=== PATIENT | male | born 1955 | race Two or more races ===

== ENCOUNTER 2022-12-04 22:29 | Inpatient (IN) | payer MEDICARE, MEDICAID ==
[~2022-12-04] VITALS: Ht 170.2 cm; Wt 76.2 kg
[2022-12-04] MEDS ORDERED: ASPirin 325 MG TAB PO ONE (23:00)
[2022-12-04] MEDS ORDERED: HEPARIN SODIUM (PORCINE) 5000 UNITS/ML 1ML VIAL IV ONE (23:00)
[2022-12-04] MEDS ORDERED: LIDOCAINE 2%HCL (LOCAL ANESTH.) INJ 20ML MDV ONE (23:10)
[2022-12-04] MEDS ORDERED: IODIXANOL 320MG/ML 100ML BTL IV ONE (23:10)
[2022-12-04] MEDS ORDERED: ATROPINE SULF 1 MG/10ml SYR ONE (23:11)
[2022-12-04] MEDS ORDERED: fentaNYL CITRATE 100 MCG/2 ML VL ONE (23:12)
[2022-12-04] MEDS ORDERED: SODIUM CHL 0.9% 50 ML ONE (23:12)
[2022-12-04] MEDS ORDERED: MIDAZOLAM HCL 2MG/2ML 2ml VIAL (1mg/ml) ONE (23:12)
[2022-12-04] MEDS ORDERED: ANGIOMAX 250 MG VIAL IV ONE (23:12)
[2022-12-04] MEDS ORDERED: EPINEPHrine HCL 1 MG/10 ML SYRG ONE (23:12)
[2022-12-04 23:14] LABS: Basophils # (auto) 0.1 10 ^3/uL (0-0.2); Basophils % (auto) 0.6 % (0.0-2.0); Eosinophils % (auto) 9.1 % (0.0-7.0); Hematocrit 38.4 % (41.0-53.0); Hemoglobin 12.9 g/dL (13.5-17.5); Mean Corpuscular Hemoglobin 29.6 pg (28.0-32.0); Mean Corpuscular Hgb Conc. 33.6 g/dL (32.0-36.0); Monocytes % (auto) 8.6 % (0.0-12.0); Neutrophils % (auto) 45.7 % (37.0-80.0); Nucleated Red Blood Cells % 0.1 %; Red Blood Cells 4.37 10^6/uL (4.5-5.90); Red Cell Distribution Width 15.1 % (11.8-14.3)
[2022-12-04 23:24] LABS: INR 1.18 (0.9-1.15); Partial Thromboplastin Time 25.6 sec (24.6-33.4)
[2022-12-04 23:31] LABS: Albumin 3.4 g/dL (3.4-5.0); Calcium 8.9 mg/dL (8.5-10.1); Magnesium 1.8 mg/dL (1.6-2.6); Potassium 3.1 mmol/L (3.5-5.1)
[2022-12-04 23:37] LABS: BUN/Creatinine Ratio 19.8 (10.0-20.0); Bilirubin, Total 0.8 mg/dL (0.2-1.0); Total Protein 6.8 g/dL (6.4-8.2)
[2022-12-05] VITALS (10 sets, daily range): BP systolic 116–165; BP diastolic 66–96
[2022-12-05] MEDS ORDERED: IODIXANOL 320MG/ML 100ML BTL IV ONE (00:08)
[2022-12-05] MEDS ORDERED: NITROGLYCERIN 0.4 MG SL TAB SL PRN (00:15)
[2022-12-05] MEDS ORDERED: MORPHINE SULFATE INJ 2 MG/ml SYRG IV PRN (00:15)
[2022-12-05] MEDS ORDERED: CLOPIDOGREL 300 MG TAB ONE (00:21)
[2022-12-05] MEDS ORDERED: ONDANSETRON HCL 4 MG/2 ML VIAL IV PRN (01:00)
[2022-12-05] MEDS ORDERED: HYDROcodone-ACET 5/325MG TAB PO PRN (01:15)
[2022-12-05] MEDS: SODIUM CHLOR 0.9% PF (SALINE LOCK) 10ML VIAL/SYR IV SCH ×3 (06:23→21:46)
[2022-12-05] MEDS: LISINOPRIL 5 MG TAB PO SCH ×2 (09:50→21:40)
[2022-12-05] MEDS: METOPROLOL TARTRATE 25 MG TAB PO SCH ×2 (09:51→21:40)
[2022-12-05] MEDS: PANTOPRAZOLE 40 MG/10 ML VIAL INJ IV SCH ×2 (09:52→21:39)
[2022-12-05] MEDS: ENOXAPARIN SOD 40 MG/0.4 ML SYRINGE SC SCH (09:53)
[2022-12-05] MEDS ORDERED: ASPirin 81 mg TAB PO SCH (10:00)
[2022-12-05] MEDS ORDERED: CLOPIDOGREL BISULFATE 75 MG TAB PO SCH (10:00)
[2022-12-05] MEDS ORDERED: hydrALAZINE HCL 20 MG/ML VL IV ONE (17:30)
[2022-12-05] MEDS: ATORVASTATIN 20 MG TAB PO SCH (21:46)
[2022-12-06] MEDS ORDERED: dilTIAZem 25 MG/5 ML VIAL IV ONE (00:45)
[2022-12-06 00:50] LABS: Urine WBC None Seen /hpf (0 - 3)
[2022-12-06 01:10] LABS: Urine Bacteria NONE SEEN /hpf (None Seen); Urine Blood Negative /uL (Negative); Urine Specific Gravity 1.007 (1.001-1.035)
[2022-12-06] MEDS ORDERED: METOPROLOL TARTRATE 50 MG TAB PO ONE (01:45)
[2022-12-06] MEDS ORDERED: LABETALOL HCL 5 MG/ML 4ML SYRINGE IV ONE (01:45)
[2022-12-06] MEDS: LABETALOL HCL 5 MG/ML 4ML SYRINGE IV PRN ×3 (06:14→17:53)
[2022-12-06] MEDS: SODIUM CHLOR 0.9% PF (SALINE LOCK) 10ML VIAL/SYR IV SCH ×4 (06:19→22:18)
[2022-12-06 06:26] LABS: Albumin 3.3 g/dL (3.4-5.0); Calcium 9.2 mg/dL (8.5-10.1); Potassium 3.3 mmol/L (3.5-5.1)
[2022-12-06 06:30] LABS: BUN/Creatinine Ratio 13.5 (10.0-20.0); Basophils # (auto) 0.1 10 ^3/uL (0-0.2); Basophils % (auto) 0.6 % (0.0-2.0); Eosinophils # (auto) 0.7 10 ^3/uL (0-0.8); Eosinophils % (auto) 5.4 % (0.0-7.0); Hematocrit 42.7 % (41.0-53.0); Hemoglobin 14.7 g/dL (13.5-17.5); Lymphocytes # (auto) 2.3 10 ^3/uL (0.4-5.4); Lymphocytes % (auto) 19.1 % (10.0-50.0); Mean Corpuscular Hemoglobin 30.7 pg (28.0-32.0); Mean Corpuscular Hgb Conc. 34.4 g/dL (32.0-36.0); Mean Corpuscular Volume 89.3 fL (80.0-100.0); Monocytes % (auto) 8.3 % (0.0-12.0); Neutrophils % (auto) 66.6 % (37.0-80.0); Red Blood Cells 4.78 10^6/uL (4.5-5.90); Red Cell Distribution Width 15.1 % (11.8-14.3); Total Protein 7.1 g/dL (6.4-8.2)
[2022-12-06 09:00] VITALS: BP 167/99
[2022-12-06] MEDS: ATORVASTATIN 20 MG TAB PO SCH (09:05)
[2022-12-06] MEDS: PANTOPRAZOLE 40 MG/10 ML VIAL INJ IV SCH (09:05)
[2022-12-06] MEDS: METOPROLOL TARTRATE 25 MG TAB PO SCH ×2 (09:06→21:50)
[2022-12-06] MEDS: ENOXAPARIN SOD 40 MG/0.4 ML SYRINGE SC SCH (09:06)
[2022-12-06] MEDS: LISINOPRIL 5 MG TAB PO SCH ×2 (09:09→21:51)
[2022-12-06 13:00] VITALS: BP 151/97
[2022-12-06] MEDS ORDERED: ASPirin 81 mg TAB PO ONE (16:45)
[2022-12-06] MEDS ORDERED: CLOPIDOGREL BISULFATE 75 MG TAB PO ONE (16:45)
[2022-12-06 17:00] VITALS: BP 156/100
[2022-12-06] MEDS ORDERED: POTASSIUM CHL 20 Meq TABLET PO ONE (17:45)
[2022-12-06] MEDS ORDERED: ERGOCALCIFEROL 50,000 UNIT(1.25MG) CAP PO SCH (17:45)
[2022-12-06] MEDS ORDERED: DEXTROSE (50%) 50ML SYRG IV PRN (17:45)
[2022-12-06 20:00] VITALS: BP 163/104
[2022-12-06 21:59] VITALS: BP 163/104
[2022-12-06] MEDS: ACCU-CHEK COMFORT CURVE STRIP VI SCH (22:18)
[2022-12-06] MEDS: InsuLIN REG 1unit/0.01ml Soln (100units/ml) SC SCH (22:19)
[2022-12-07] VITALS (8 sets, daily range): BP systolic 146–166; BP diastolic 84–98
[2022-12-07] MEDS: LABETALOL HCL 5 MG/ML 4ML SYRINGE IV PRN ×4 (01:02→06:08)
[2022-12-07] MEDS: SODIUM CHLOR 0.9% PF (SALINE LOCK) 10ML VIAL/SYR IV SCH ×3 (06:16→22:00)
[2022-12-07] MEDS: ACCU-CHEK COMFORT CURVE STRIP VI SCH ×4 (06:16→22:00)
[2022-12-07] MEDS: InsuLIN REG 1unit/0.01ml Soln (100units/ml) SC SCH ×4 (06:22→22:00)
[2022-12-07 06:31] LABS: Potassium 3.7 mmol/L (3.5-5.1)
[2022-12-07 06:40] LABS: Albumin 3.1 g/dL (3.4-5.0); BUN/Creatinine Ratio 16.9 (10.0-20.0); Bilirubin, Total 1.2 mg/dL (0.2-1.0); Calcium 8.7 mg/dL (8.5-10.1); Magnesium 1.8 mg/dL (1.6-2.6); Total Protein 6.8 g/dL (6.4-8.2)
[2022-12-07] MEDS ORDERED: PANTOPRAZOLE 40 MG TAB PO SCH (10:00)
[2022-12-07] MEDS: ENOXAPARIN SOD 40 MG/0.4 ML SYRINGE SC SCH (10:21)
[2022-12-07] MEDS: ASPirin 81 mg TAB PO SCH (10:22)
[2022-12-07] MEDS: METOPROLOL TARTRATE 25 MG TAB PO SCH ×2 (10:22→22:22)
[2022-12-07] MEDS: CLOPIDOGREL BISULFATE 75 MG TAB PO SCH (10:22)
[2022-12-07] MEDS: LISINOPRIL 5 MG TAB PO SCH (10:23)
[2022-12-07] MEDS ORDERED: cloNIDine HCL 0.1 MG TAB PO PRN (14:45)
[2022-12-07] MEDS ORDERED: PANTOPRAZOLE 40 MG TAB PO ONE (14:45)
[2022-12-07] MEDS ORDERED: LISINOPRIL 10 MG TAB PO ONE (15:45)
[2022-12-07] MEDS ORDERED: cloNIDine 0.3 mg/24hr 7DAY PATCH TD SCH (20:45)
[2022-12-07] MEDS ORDERED: amLODIPine BESYLATE 5 MG TAB PO SCH (22:00)
[2022-12-07] MEDS ORDERED: LISINOPRIL 10 MG TAB PO SCH (22:00)
[2022-12-07] MEDS: ATORVASTATIN 20 MG TAB PO SCH (22:21)
[2022-12-07] MEDS: LISINOPRIL 20 MG TAB PO SCH (22:23)
[2022-12-07] MEDS: NIFEdipine ER 30 MG TAB PO SCH (22:23)
[2022-12-08 05:00] VITALS: BP 106/65
[2022-12-08] MEDS: SODIUM CHLOR 0.9% PF (SALINE LOCK) 10ML VIAL/SYR IV SCH ×2 (06:00→14:26)
[2022-12-08] MEDS: ACCU-CHEK COMFORT CURVE STRIP VI SCH ×2 (06:14→11:48)
[2022-12-08] MEDS: InsuLIN REG 1unit/0.01ml Soln (100units/ml) SC SCH ×2 (06:14→11:49)
[2022-12-08 08:10] VITALS: BP 107/66
[2022-12-08] MEDS ORDERED: PANTOPRAZOLE 40 MG TAB PO SCH (10:00)
[2022-12-08] MEDS: NIFEdipine ER 30 MG TAB PO SCH (10:00)
[2022-12-08] MEDS: METOPROLOL TARTRATE 25 MG TAB PO SCH (10:00)
[2022-12-08] MEDS: CLOPIDOGREL BISULFATE 75 MG TAB PO SCH (10:26)
[2022-12-08] MEDS: ASPirin 81 mg TAB PO SCH (10:31)
[2022-12-08] MEDS: LISINOPRIL 20 MG TAB PO SCH (10:32)
[2022-12-08] MEDS: ENOXAPARIN SOD 40 MG/0.4 ML SYRINGE SC SCH (10:32)
[2022-12-08] MEDS ORDERED: ERGO1CAP23 PO (11:58)
[2022-12-08] MEDS ORDERED: CLOP75TA70 PO (11:58)
[2022-12-08] MEDS ORDERED: LISI20TA28 PO (11:58)
[2022-12-08] MEDS ORDERED: ASPI-325 PO (11:58)
[2022-12-08] MEDS ORDERED: NIFE1TAB36 PO (11:58)
[2022-12-08] MEDS ORDERED: EMPA1TAB PO (11:59)
[2022-12-08 14:31] VITALS: BP 107/66
== END 2022-12-08 17:03 | disposition home or self-care (01) | DRG 250 ==
LOC: EDBD 22:29 → ER 22:29 → TELE 12-05 00:06 → TELE-WESTW 12-05 01:49
PROVIDERS: ADMIT Specialist; ATTEND Internal Medicine
PROC: 03CY3ZZ Extirpation of Matter from Upper Artery, Percutaneous Approach (ICD-10-PCS; principal; 2022-12-05)
PROC: 02703ZZ Dilation of Coronary Artery, One Artery, Percutaneous Approach (ICD-10-PCS; 2022-12-05)
PROC: 047A3DZ Dilation of Left Renal Artery with Intraluminal Device, Percutaneous Approach (ICD-10-PCS; 2022-12-05)
PROC: B211YZZ Fluoroscopy of Multiple Coronary Arteries using Other Contrast (ICD-10-PCS; 2022-12-05)
PROC: B215YZZ Fluoroscopy of Left Heart using Other Contrast (ICD-10-PCS; 2022-12-05)
PROC: 4A023N7 Measurement of Cardiac Sampling and Pressure, Left Heart, Percutaneous Approach (ICD-10-PCS; 2022-12-05)
PROC: B210YZZ Fluoroscopy of Single Coronary Artery using Other Contrast (ICD-10-PCS; 2022-12-05)
PROC: 4A133B1 Monitoring of Arterial Pressure, Peripheral, Percutaneous Approach (ICD-10-PCS; 2022-12-05)
PROC: B44GZZ3 Ultrasonography of Left Lower Extremity Arteries, Intravascular (ICD-10-PCS; 2022-12-05)
DX: I21.09 ST elevation (STEMI) myocardial infarction involving other coronary artery of anterior wall (principal); I50.31 Acute diastolic (congestive) heart failure; E44.0 Moderate protein-calorie malnutrition; I69.351 Hemiplegia and hemiparesis following cerebral infarction affecting right dominant side; E11.9 Type 2 diabetes mellitus without complications; I11.0 Hypertensive heart disease with heart failure; E55.9 Vitamin D deficiency, unspecified; I25.10 Atherosclerotic heart disease of native coronary artery without angina pectoris; Z68.26 Body mass index [BMI] 26.0-26.9, adult; Z83.3 Family history of diabetes mellitus; Z82.49 Family history of ischemic heart disease and other diseases of the circulatory system; I25.2 Old myocardial infarction
CPT/HCPCS: 36415; 37236; 70450; 71045; 80053; 80061; 81001; 82043; 82306; 82962; 83036; 83735; 83880; 84443; 84484; 85025; 85610; 85730; 86850; 86900; 86901; 92941; 93005; 93306; 93458; 96374; 97110; 97163; 97530; 99152; 99153; C9113; G0378; J1815; J2250; J3490; Q9967

== ENCOUNTER 2023-03-28 23:02 | Inpatient (IN) | payer MEDICARE, MEDICAID ==
[~2023-03-28] VITALS: Ht 170.2 cm; Wt 66.4 kg
[~2023-03-28 23:02] MED LIST: ASPI-325 PO; CLOP75TA70 PO; EMPA1TAB PO; ERGO1CAP23 PO; LISI20TA56 PO; NIFE1TAB36 PO
[2023-03-29 00:55] LABS: Basophils # (auto) 0.1 10 ^3/uL (0-0.2); Basophils % (auto) 1.1 % (0.0-2.0); Eosinophils # (auto) 0.5 10 ^3/uL (0-0.8); Hemoglobin 14.6 g/dL (13.5-17.5); Lymphocytes % (auto) 42.2 % (10.0-50.0); Mean Corpuscular Hemoglobin 31.2 pg (28.0-32.0); Mean Corpuscular Hgb Conc. 33.8 g/dL (32.0-36.0); Mean Corpuscular Volume 92.2 fL (80.0-100.0); Monocytes # (auto) 0.7 10 ^3/uL (0-1.3); Monocytes % (auto) 9.4 % (0.0-12.0); Neutrophils # (auto) 2.9 10 ^3/uL (1.6-8.6); Neutrophils % (auto) 40.3 % (37.0-80.0); Nucleated Red Blood Cells % 0.1 %; Red Blood Cells 4.67 10^6/uL (4.5-5.90); Red Cell Distribution Width 14.8 % (11.8-14.3); White Blood Cell 7.1 10^3/uL (4.4-10.8)
[2023-03-29 01:58] LABS: Erythrocyte Sedimentation Rate 7 mm/hr (0-20)
[2023-03-29 02:15] LABS: Alanine Aminotransferase 36 U/L (7-40); Albumin 4.1 g/dL (3.2-4.8); Alkaline Phosphatase 91 U/L (46-116); Anion Gap 5.3 (5-15); Aspartate Aminotransferase 24 U/L (13-40); BUN/Creatinine Ratio 23.3 (10.0-20.0); Bilirubin, Total 0.6 mg/dL (0.2-1.0); Blood Urea Nitrogen 20 mg/dL (9-23); Calcium 9.6 mg/dL (8.7-10.4); Carbon Dioxide 26.7 mmol/L (20-30); Chloride 106 mmol/L (98-107); Glucose 105 mg/dL (74-106); Potassium 3.6 mmol/L (3.5-5.1); Sodium 138 mmol/L (136-145)
[2023-03-29] MEDS ORDERED: ONDANSETRON HCL 4 MG/2 ML VIAL IV PRN ×2 (03:45→04:00)
[2023-03-29] MEDS ORDERED: ACETAMINOPHEN 325 MG TAB PO PRN ×2 (03:45→04:00)
[2023-03-29] MEDS ORDERED: NITROGLYCERIN 0.4 MG SL TAB SL PRN (04:00)
[2023-03-29] MEDS ORDERED: MORPHINE SULFATE INJ 2 MG/ml SYRG IV PRN (04:00)
[2023-03-29 04:15] VITALS: PULSE 49; RESP 13; O2SAT 95
[2023-03-29 08:00] VITALS: PULSE 50; RESP 13; O2SAT 96
[2023-03-29] MEDS ORDERED: ENOXAPARIN SOD 40 MG/0.4 ML SYRINGE SC SCH (10:00)
[2023-03-29] MEDS: PANTOPRAZOLE 40 MG TAB PO SCH (10:42)
[2023-03-29] MEDS: ASPirin 81 mg TAB PO SCH (10:42)
[2023-03-29] MEDS: ENOXAPARIN SOD 40 MG/0.4 ML SYRINGE SC SCH (10:42)
[2023-03-29] MEDS: LISINOPRIL 20 MG TAB PO SCH ×2 (10:43→22:55)
[2023-03-29] MEDS: NIFEdipine ER 30 MG TAB PO SCH (10:43)
[2023-03-29] MEDS: CLOPIDOGREL BISULFATE 75 MG TAB PO SCH (10:44)
[2023-03-29] MEDS: SACUBITRIL-VALSARTAN 24mg/26mg TAB PO SCH ×2 (10:44→22:54)
[2023-03-29 19:30] VITALS: PULSE 67; RESP 14; O2SAT 95
[2023-03-29 21:15] LABS: COVID19 ANTIGEN SOFIA FIA NEGATIVE (NEGATIVE)
[2023-03-29] MEDS: ATORVASTATIN 20 MG TAB PO SCH (22:56)
[2023-03-30] VITALS (11 sets, daily range): BP systolic 104–157; BP diastolic 65–107; PULSE 66–87; RESP 14–20; TEMP 36.9; O2SAT 92–98
[2023-03-30 06:17] LABS: Chloride 106 mmol/L (98-107); Potassium 3.4 mmol/L (3.5-5.1); Sodium 139 mmol/L (136-145)
[2023-03-30 06:18] LABS: Anion Gap 8.1 (5-15); Carbon Dioxide 24.9 mmol/L (20-30)
[2023-03-30 06:19] LABS: Calcium 9.3 mg/dL (8.5-10.1)
[2023-03-30 06:23] LABS: Glucose 113 mg/dL (74-106)
[2023-03-30 06:24] LABS: BUN/Creatinine Ratio 24.2 (10.0-20.0); Blood Urea Nitrogen 16 mg/dL (9-23)
[2023-03-30 06:53] LABS: Basophils # (auto) 0.1 10 ^3/uL (0-0.2); Basophils % (auto) 0.6 % (0.0-2.0); Eosinophils # (auto) 0.2 10 ^3/uL (0-0.8); Eosinophils % (auto) 2.4 % (0.0-7.0); Hematocrit 46.8 % (41.0-53.0); Hemoglobin 15.7 g/dL (13.5-17.5); Lymphocytes # (auto) 2.3 10 ^3/uL (0.4-5.4); Lymphocytes % (auto) 27.2 % (10.0-50.0); Mean Corpuscular Hgb Conc. 33.5 g/dL (32.0-36.0); Mean Corpuscular Volume 92.5 fL (80.0-100.0); Monocytes # (auto) 0.8 10 ^3/uL (0-1.3); Monocytes % (auto) 9.8 % (0.0-12.0); Neutrophils # (auto) 5.1 10 ^3/uL (1.6-8.6); Nucleated Red Blood Cells % 0.1 %; Red Blood Cells 5.07 10^6/uL (4.5-5.90); White Blood Cell 8.6 10^3/uL (4.4-10.8)
[2023-03-30 07:16] LABS: Urine Bacteria NONE SEEN /hpf (None Seen); Urine Blood 3+ /uL (Negative); Urine Clarity Clear (Clear); Urine Color PINK (Yellow); Urine Protein, UAD 1+ (Negative); Urine Specific Gravity 1.028 (1.001-1.035); Urine Urobilinogen Normal (Negative); Urine WBC 507 /hpf (0 - 3); Urine WBC Clumps PRESENT /hpf (None Seen); Urine pH 5.5 (5.0-8.0)
[2023-03-30] MEDS: ASPirin 81 mg TAB PO SCH (08:39)
[2023-03-30] MEDS: SACUBITRIL-VALSARTAN 24mg/26mg TAB PO SCH ×2 (08:39→22:38)
[2023-03-30] MEDS: LISINOPRIL 20 MG TAB PO SCH (08:40)
[2023-03-30] MEDS: PANTOPRAZOLE 40 MG TAB PO SCH (08:40)
[2023-03-30] MEDS: NIFEdipine ER 30 MG TAB PO SCH (08:40)
[2023-03-30] MEDS: CLOPIDOGREL BISULFATE 75 MG TAB PO SCH (08:40)
[2023-03-30] MEDS: ENOXAPARIN SOD 40 MG/0.4 ML SYRINGE SC SCH (08:41)
[2023-03-30] MEDS: ATORVASTATIN 20 MG TAB PO SCH (22:39)
[2023-03-31 05:00] VITALS: BP 100/64; PULSE 54; RESP 16; TEMP 97.5; O2SAT 96
[2023-03-31 07:30] VITALS: BP 157/107; PULSE 57; TEMP 36.4
[2023-03-31 08:00] VITALS: PULSE 55; RESP 16; O2SAT 97
[2023-03-31 08:38] VITALS: BP 105/66; PULSE 55; RESP 16; TEMP 97.7; O2SAT 97
[2023-03-31] MEDS: SACUBITRIL-VALSARTAN 24mg/26mg TAB PO SCH (08:49)
[2023-03-31] MEDS: ASPirin 81 mg TAB PO SCH (08:49)
[2023-03-31] MEDS: PANTOPRAZOLE 40 MG TAB PO SCH (08:49)
[2023-03-31] MEDS: CLOPIDOGREL BISULFATE 75 MG TAB PO SCH (08:49)
[2023-03-31] MEDS: ENOXAPARIN SOD 40 MG/0.4 ML SYRINGE SC SCH (08:50)
[2023-03-31] MEDS: NIFEdipine ER 30 MG TAB PO SCH (08:50)
[2023-03-31] MEDS ORDERED: LEVO500T91 PO ×2 (11:46→12:49)
[2023-03-31 12:33] VITALS: BP 100/59; PULSE 59; RESP 18; TEMP 97.6; O2SAT 98
[2023-03-31 12:52] VITALS: BP 105/66; TEMP 36.4
== END 2023-03-31 14:00 | disposition home or self-care (01) | DRG 948 ==
LOC: ER 23:02 → TELE 03-29 03:49 → TELE-WESTW 03-29 23:32
PROVIDERS: ADMIT Nurse Practitioner; ATTEND Internal Medicine
DX: R77.8 Other specified abnormalities of plasma proteins (principal); I69.351 Hemiplegia and hemiparesis following cerebral infarction affecting right dominant side; N39.0 Urinary tract infection, site not specified; I11.0 Hypertensive heart disease with heart failure; I25.5 Ischemic cardiomyopathy; Z20.822 Contact with and (suspected) exposure to COVID-19; Z82.49 Family history of ischemic heart disease and other diseases of the circulatory system; I25.2 Old myocardial infarction; Z98.61 Coronary angioplasty status; Z83.3 Family history of diabetes mellitus; I50.9 Heart failure, unspecified
CPT/HCPCS: 36415; 70450; 71045; 80048; 80053; 81001; 83605; 83880; 84484; 85025; 85652; 86141; 87426; 93005; 93971; 96372; 99291; G0378

== ENCOUNTER 2023-04-10 23:04 | Inpatient (IN) | payer MEDICARE, MEDICAID ==
[~2023-04-10] VITALS: Ht 162.6 cm; Wt 66.1 kg
[~2023-04-10 23:04] MED LIST changes: +LEVO500T91 PO
[2023-04-11] VITALS (7 sets, daily range): BP systolic 123–133; BP diastolic 73–77; PULSE 47–65; RESP 12–20; TEMP 97.6–98.4; O2SAT 93–100
[2023-04-11 00:08] LABS: Basophils # (auto) 0.1 10 ^3/uL (0-0.2); Basophils % (auto) 0.9 % (0.0-2.0); Eosinophils # (auto) 0.4 10 ^3/uL (0-0.8); Eosinophils % (auto) 4.4 % (0.0-7.0); Hematocrit 44.9 % (41.0-53.0); Hemoglobin 15.1 g/dL (13.5-17.5); Lymphocytes # (auto) 2.1 10 ^3/uL (0.4-5.4); Lymphocytes % (auto) 22.9 % (10.0-50.0); Mean Corpuscular Hemoglobin 30.7 pg (28.0-32.0); Mean Corpuscular Hgb Conc. 33.6 g/dL (32.0-36.0); Mean Corpuscular Volume 91.5 fL (80.0-100.0); Monocytes # (auto) 0.5 10 ^3/uL (0-1.3); Monocytes % (auto) 5.5 % (0.0-12.0); Neutrophils # (auto) 6.1 10 ^3/uL (1.6-8.6); Neutrophils % (auto) 66.3 % (37.0-80.0); Nucleated Red Blood Cells % 0.1 %; Red Blood Cells 4.91 10^6/uL (4.5-5.90); Red Cell Distribution Width 14.7 % (11.8-14.3); White Blood Cell 9.2 10^3/uL (4.4-10.8)
[2023-04-11 00:15] LABS: Acetaminophen < 2.0 UG/ML (10.0-20.0); Alanine Aminotransferase 37 U/L (7-40); Albumin 4.8 g/dL (3.2-4.8); Alkaline Phosphatase 89 U/L (46-116); Anion Gap 7 (5-15); Aspartate Aminotransferase 27 U/L (13-40); Bilirubin, Total 0.7 mg/dL (0.2-1.0); Blood Alcohol < 3.0 mg/dL (<10); Blood Urea Nitrogen 18 mg/dL (9-23); Calcium 9.6 mg/dL (8.7-10.4); Carbon Dioxide 27 mmol/L (20-30); Chloride 105 mmol/L (98-107); Glucose 95 mg/dL (74-106); Magnesium 2.2 mg/dL (1.6-2.6); Potassium 3.5 mmol/L (3.5-5.1); Sodium 139 mmol/L (136-145); Total Protein 7.4 g/dL (5.7-8.2)
[2023-04-11 00:18] LABS: Salicylate < 3.0 mg/dL (2.8-20.0)
[2023-04-11 00:25] LABS: INR 1.18 (0.9-1.15); Partial Thromboplastin Time 29.1 SEC (24.5-34.5); Prothrombin Time 12.3 sec (9.3-11.8)
[2023-04-11] MEDS ORDERED: ASPirin 325 MG TAB PO ONE (00:30)
[2023-04-11 03:10] LABS: Urine Bacteria FEW /hpf (None Seen); Urine Blood Negative /uL (Negative); Urine Clarity Clear (Clear); Urine Protein, UAD Negative (Negative); Urine Specific Gravity 1.011 (1.001-1.035); Urine Urobilinogen Normal (Negative); Urine WBC <1 /hpf (0 - 3); Urine pH 6.5 (5.0-8.0)
[2023-04-11 03:11] LABS: Urine Color Straw (Yellow)
[2023-04-11 04:02] LABS: Amphetamine Screen, Urine Neg (NEGATIVE); Barbiturate Scree,Urine Neg (NEGATIVE); Benzodiazephine Screen, Urine Neg (NEGATIVE); Cannabinoid Screen, Urine Neg (NEGATIVE); Cocaine Screen, Urine Neg (NEGATIVE); Opiate Scree,Urine Neg (NEGATIVE); Phencyclidine Screen, Urine Neg (NEGATIVE)
[2023-04-11] MEDS ORDERED: ONDANSETRON HCL 4 MG/2 ML VIAL IV PRN (05:15)
[2023-04-11] MEDS ORDERED: MORPHINE SULFATE INJ 2 MG/ml SYRG IV PRN (05:15)
[2023-04-11] MEDS ORDERED: NITROGLYCERIN 0.4 MG SL TAB SL PRN (05:15)
[2023-04-11] MEDS ORDERED: ENOXAPARIN SOD 100 MG/1 ML SYRINGE SC ONE (05:15)
[2023-04-11] MEDS ORDERED: ACETAMINOPHEN 325 MG TAB PO PRN (05:15)
[2023-04-11] MEDS ORDERED: PANTOPRAZOLE 40 MG TAB PO SCH (10:00)
[2023-04-11] MEDS: SACUBITRIL-VALSARTAN 24mg/26mg TAB PO SCH ×2 (10:23→21:51)
[2023-04-11] MEDS: ASPirin 81 mg TAB PO SCH (10:23)
[2023-04-11] MEDS: CLOPIDOGREL BISULFATE 75 MG TAB PO SCH (10:23)
[2023-04-11] MEDS: hydrALAZINE HCL 25 MG TAB PO SCH ×2 (10:24→21:52)
[2023-04-11] MEDS ORDERED: HYDR25TA87 PO (15:04)
[2023-04-11] MEDS ORDERED: ATOR-47 PO (15:04)
[2023-04-11] MEDS ORDERED: SACU1TAB PO (15:04)
[2023-04-11] MEDS ORDERED: CARV3.1240 PO (15:04)
[2023-04-11] MEDS ORDERED: FOLI-119 PO (15:04)
[2023-04-11] MEDS ORDERED: DEXTROSE (50%) 50ML SYRG IV PRN (16:45)
[2023-04-11] MEDS: InsuLIN REG 1unit/0.01ml Soln (100units/ml) SC SCH (17:00)
[2023-04-11] MEDS: ACCU-CHEK COMFORT CURVE STRIP VI SCH ×2 (17:10→21:53)
[2023-04-11] MEDS: ATORVASTATIN 20 MG TAB PO SCH (21:52)
[2023-04-11] MEDS ORDERED: InsuLIN REG 1unit/0.01ml Soln (100units/ml) SC SCH (22:00)
[2023-04-12] VITALS (7 sets, daily range): BP systolic 120–130; BP diastolic 70–79; PULSE 50–73; RESP 16–20; TEMP 97.2–98.4; O2SAT 95–100
[2023-04-12 06:12] LABS: Chloride 106 mmol/L (98-107); Potassium 3.4 mmol/L (3.5-5.1); Sodium 141 mmol/L (136-145)
[2023-04-12 06:13] LABS: Anion Gap 4 (5-15); Calcium 9.2 mg/dL (8.7-10.4); Carbon Dioxide 31 mmol/L (20-30)
[2023-04-12 06:18] LABS: BUN/Creatinine Ratio 21.4 (10.0-20.0); Blood Urea Nitrogen 18 mg/dL (9-23); Glucose 86 mg/dL (74-106)
[2023-04-12] MEDS: InsuLIN REG 1unit/0.01ml Soln (100units/ml) SC SCH (06:46)
[2023-04-12] MEDS: ACCU-CHEK COMFORT CURVE STRIP VI SCH (06:47)
[2023-04-12] MEDS ORDERED: POTASSIUM CHL 20 Meq TABLET PO ONE (09:30)
[2023-04-12] MEDS: CLOPIDOGREL BISULFATE 75 MG TAB PO SCH (10:13)
[2023-04-12] MEDS: ASPirin 81 mg TAB PO SCH (10:13)
[2023-04-12] MEDS: hydrALAZINE HCL 25 MG TAB PO SCH ×2 (10:14→22:00)
[2023-04-12] MEDS: SACUBITRIL-VALSARTAN 24mg/26mg TAB PO SCH ×2 (10:14→22:00)
[2023-04-12] MEDS: ENOXAPARIN SOD 40 MG/0.4 ML SYRINGE SC SCH (10:14)
[2023-04-12] MEDS: ATORVASTATIN 20 MG TAB PO SCH (22:00)
[2023-04-12] MEDS: MUPIROCIN 2% OINT 15gm or 22gm FOR MRSA NARES EACHNOSTRI SCH (22:01)
[2023-04-13] VITALS (7 sets, daily range): BP systolic 104–157; BP diastolic 63–99; PULSE 67–73; RESP 14–18; TEMP 97.4–98.7; O2SAT 95–98
[2023-04-13] MEDS: MUPIROCIN 2% OINT 15gm or 22gm FOR MRSA NARES EACHNOSTRI SCH ×2 (10:33→23:01)
[2023-04-13] MEDS: hydrALAZINE HCL 25 MG TAB PO SCH ×2 (10:34→23:03)
[2023-04-13] MEDS: SACUBITRIL-VALSARTAN 24mg/26mg TAB PO SCH ×2 (10:34→23:04)
[2023-04-13] MEDS: ASPirin 81 mg TAB PO SCH (10:34)
[2023-04-13] MEDS: ENOXAPARIN SOD 40 MG/0.4 ML SYRINGE SC SCH (10:34)
[2023-04-13] MEDS: CLOPIDOGREL BISULFATE 75 MG TAB PO SCH (10:34)
[2023-04-13] MEDS ORDERED: hydrALAZINE HCL 25 MG TAB PO ONE (12:30)
[2023-04-13 13:44] LABS: Urine Bacteria NONE SEEN /hpf (None Seen); Urine Blood 3+ /uL (Negative); Urine Clarity HAZY (Clear); Urine Color Red (Yellow); Urine Protein, UAD 2+ (Negative); Urine Specific Gravity 1.013 (1.001-1.035); Urine Urobilinogen Normal (Negative); Urine WBC 391 /hpf (0 - 3)
[2023-04-13 20:08] LABS: Basophils # (auto) 0.1 10 ^3/uL (0-0.2); Basophils % (auto) 0.7 % (0.0-2.0); Eosinophils # (auto) 0.3 10 ^3/uL (0-0.8); Eosinophils % (auto) 4.1 % (0.0-7.0); Hematocrit 41.2 % (41.0-53.0); Hemoglobin 14.2 g/dL (13.5-17.5); Lymphocytes # (auto) 2.1 10 ^3/uL (0.4-5.4); Lymphocytes % (auto) 25.8 % (10.0-50.0); Mean Corpuscular Hemoglobin 31.5 pg (28.0-32.0); Mean Corpuscular Hgb Conc. 34.6 g/dL (32.0-36.0); Mean Corpuscular Volume 91.2 fL (80.0-100.0); Monocytes # (auto) 0.6 10 ^3/uL (0-1.3); Monocytes % (auto) 7.4 % (0.0-12.0); Neutrophils # (auto) 5.1 10 ^3/uL (1.6-8.6); Nucleated Red Blood Cells % 0.1 %; Red Blood Cells 4.52 10^6/uL (4.5-5.90); Red Cell Distribution Width 14.8 % (11.8-14.3); White Blood Cell 8.3 10^3/uL (4.4-10.8)
[2023-04-13 21:11] LABS: INR 1.18 (0.9-1.15); Prothrombin Time 12.3 sec (9.3-11.8)
[2023-04-13] MEDS: ATORVASTATIN 20 MG TAB PO SCH (23:03)
[2023-04-14 05:00] VITALS: BP 104/66; PULSE 60; RESP 16; TEMP 98.5; O2SAT 96
[2023-04-14] MEDS: hydrALAZINE HCL 25 MG TAB PO SCH ×2 (06:26→13:39)
[2023-04-14 08:00] VITALS: PULSE 90
[2023-04-14 09:00] VITALS: BP 99/66; PULSE 88; RESP 14; TEMP 98.5; O2SAT 98
[2023-04-14] MEDS: MUPIROCIN 2% OINT 15gm or 22gm FOR MRSA NARES EACHNOSTRI SCH (10:08)
[2023-04-14] MEDS: ASPirin 81 mg TAB PO SCH (10:08)
[2023-04-14] MEDS: ENOXAPARIN SOD 40 MG/0.4 ML SYRINGE SC SCH (10:08)
[2023-04-14] MEDS: CLOPIDOGREL BISULFATE 75 MG TAB PO SCH (10:08)
[2023-04-14] MEDS: SACUBITRIL-VALSARTAN 24mg/26mg TAB PO SCH (10:08)
[2023-04-14 11:48] VITALS: BP 116/79; TEMP 36.9
== END 2023-04-14 15:03 | disposition home or self-care (01) | DRG 281 ==
LOC: ER 23:04 → EDBD 23:04 → TELE 04-11 05:19 → TELE-WESTW 04-11 15:04
PROVIDERS: ADMIT Nurse Practitioner; ATTEND Family Medicine
DX: I21.4 Non-ST elevation (NSTEMI) myocardial infarction (principal); I69.351 Hemiplegia and hemiparesis following cerebral infarction affecting right dominant side; R00.1 Bradycardia, unspecified; E78.00 Pure hypercholesterolemia, unspecified; I25.10 Atherosclerotic heart disease of native coronary artery without angina pectoris; R53.1 Weakness; R31.9 Hematuria, unspecified; E11.9 Type 2 diabetes mellitus without complications; I11.0 Hypertensive heart disease with heart failure; I25.5 Ischemic cardiomyopathy; I50.9 Heart failure, unspecified; Z79.899 Other long term (current) drug therapy; Z82.49 Family history of ischemic heart disease and other diseases of the circulatory system; Z83.3 Family history of diabetes mellitus; Z95.5 Presence of coronary angioplasty implant and graft; Z79.01 Long term (current) use of anticoagulants
CPT/HCPCS: 36415; 71045; 74176; 80048; 80053; 80307; 80320; 80329; 81001; 82962; 83036; 83605; 83735; 83880; 84484; 85025; 85610; 85730; 87081; 93005; 96372; 97110; 97116; 97163; 97530; G0378; J1815

== ENCOUNTER → 2023-05-23 | Outpatient (CLI) | payer MEDICARE, MEDICAID ==
[~2023-05-23] MED LIST changes: +ATOR-47 PO; +CARV3.1240 PO; +FOLI-119 PO; +HYDR25TA87 PO; +SACU1TAB PO
[2023-05-23 11:09] LABS: Basophils # (auto) 0.1 10 ^3/uL (0-0.2); Basophils % (auto) 1.2 % (0.0-2.0); Eosinophils # (auto) 0.5 10 ^3/uL (0-0.8); Eosinophils % (auto) 8.9 % (0.0-7.0); Hemoglobin 14.4 g/dL (13.5-17.5); Lymphocytes # (auto) 1.8 10 ^3/uL (0.4-5.4); Lymphocytes % (auto) 32.2 % (10.0-50.0); Mean Corpuscular Hemoglobin 31.2 pg (28.0-32.0); Mean Corpuscular Hgb Conc. 33.4 g/dL (32.0-36.0); Mean Corpuscular Volume 93.3 fL (80.0-100.0); Monocytes # (auto) 0.4 10 ^3/uL (0-1.3); Monocytes % (auto) 6.6 % (0.0-12.0); Neutrophils # (auto) 2.9 10 ^3/uL (1.6-8.6); Neutrophils % (auto) 51.1 % (37.0-80.0); Nucleated Red Blood Cells % 0.1 %; Red Blood Cells 4.61 10^6/uL (4.5-5.90); Red Cell Distribution Width 15.2 % (11.8-14.3); White Blood Cell 5.7 10^3/uL (4.4-10.8)
[2023-05-23 11:48] LABS: Alanine Aminotransferase 34 U/L (7-40); Albumin 3.9 g/dL (3.2-4.8); Alkaline Phosphatase 84 U/L (46-116); Anion Gap 5 (5-15); Aspartate Aminotransferase 24 U/L (13-40); BUN/Creatinine Ratio 20.3 (10.0-20.0); Bilirubin, Total 0.8 mg/dL (0.2-1.0); Blood Urea Nitrogen 13 mg/dL (9-23); Calcium 9.5 mg/dL (8.5-10.1); Carbon Dioxide 30 mmol/L (20-30); Chloride 107 mmol/L (98-107); Glucose 132 mg/dL (74-106); Potassium 3.5 mmol/L (3.5-5.1); Sodium 142 mmol/L (136-145); Total Protein 6.9 g/dL (5.7-8.2)
== END | disposition home or self-care (01) ==
LOC: LAB 10:53
PROVIDERS: ATTEND Internal Medicine
DX: I10 Essential (primary) hypertension (principal)
CPT/HCPCS: 36415; 80053; 85025

== ENCOUNTER → 2024-02-08 | Outpatient (CLI) | payer MEDICARE, MEDICAID ==
[2024-02-08 09:12] LABS: Basophils # (auto) 0.1 10 ^3/uL (0-0.2); Basophils % (auto) 1.1 % (0.0-2.0); Eosinophils # (auto) 0.4 10 ^3/uL (0-0.8); Eosinophils % (auto) 7.6 % (0.0-7.0); Hematocrit 44.3 % (41.0-53.0); Lymphocytes # (auto) 2.2 10 ^3/uL (0.4-5.4); Lymphocytes % (auto) 38.8 % (10.0-50.0); Mean Corpuscular Hemoglobin 31.5 pg (28.0-32.0); Mean Corpuscular Volume 92.8 fL (80.0-100.0); Monocytes # (auto) 0.4 10 ^3/uL (0-1.3); Monocytes % (auto) 7.4 % (0.0-12.0); Neutrophils # (auto) 2.6 10 ^3/uL (1.6-8.6); Neutrophils % (auto) 45.1 % (37.0-80.0); Nucleated Red Blood Cells % 0.1 %; Red Blood Cells 4.77 10^6/uL (4.5-5.90); Red Cell Distribution Width 14.6 % (11.8-14.3); White Blood Cell 5.8 10^3/uL (4.4-10.8)
[2024-02-08 09:30] LABS: Alanine Aminotransferase 24 U/L (7-40); Alkaline Phosphatase 79 U/L (46-116); Anion Gap 5 (5-15); BUN/Creatinine Ratio 24.4 (10.0-20.0); Blood Urea Nitrogen 21 mg/dL (9-23); Calcium 9.9 mg/dL (8.7-10.4); Carbon Dioxide 30 mmol/L (20-30); Chloride 109 mmol/L (98-107); Glucose 83 mg/dL (74-106); Potassium 4.2 mmol/L (3.5-5.1); Sodium 144 mmol/L (136-145); Triglycerides 63 mg/dL (< 150)
[2024-02-08 09:31] LABS: Albumin 4.2 g/dL (3.2-4.8); LDL Cholesterol 40 mg/dL (< 100)
[2024-02-08 09:32] LABS: Aspartate Aminotransferase 14 U/L (13-40); Bilirubin, Total 0.9 mg/dL (0.2-1.0); Cholesterol 98 mg/dL (< 200); HDL Cholesterol 43 mg/dL (40-59); Total Protein 6.9 g/dL (5.7-8.2)
== END | disposition home or self-care (01) ==
LOC: LAB 08:31
PROVIDERS: ATTEND Internal Medicine
DX: E11.69 Type 2 diabetes mellitus with other specified complication (principal); I50.32 Chronic diastolic (congestive) heart failure; Z79.899 Other long term (current) drug therapy
CPT/HCPCS: 36415; 80053; 80061; 82306; 83036; 84443; 85025

== ENCOUNTER → 2024-02-12 | Outpatient (CLI) | payer MEDICARE, MEDICAID ==
[2024-02-12 14:50] LABS: Urine Bacteria None Seen /hpf (None Seen); Urine WBC None Seen /hpf (0 - 3)
[2024-02-12 15:05] LABS: Urine Blood 3+ /uL (Negative); Urine Clarity Clear (Clear); Urine Color Light-Yellow (Yellow); Urine Protein, UAD Negative (Negative); Urine Specific Gravity 1.028 (1.001-1.035); Urine Urobilinogen Normal (Negative); Urine pH 5.5 (5.0-9.0)
== END | disposition home or self-care (01) ==
LOC: LAB 14:17
PROVIDERS: ATTEND Internal Medicine
DX: E11.69 Type 2 diabetes mellitus with other specified complication (principal); I50.32 Chronic diastolic (congestive) heart failure
CPT/HCPCS: 81001; 82043; 82274

== ENCOUNTER 2024-02-19 17:19 | Inpatient (IN) | payer MEDICARE, MEDICAID ==
[~2024-02-19] VITALS: Ht 167.6 cm; Wt 60.7 kg
[2024-02-19 18:27] VITALS: PULSE 60; RESP 18; O2SAT 97
[2024-02-19 18:44] LABS: Basophils # (auto) 0.1 10 ^3/uL (0-0.2); Basophils % (auto) 1.2 % (0.0-2.0); Eosinophils # (auto) 0.4 10 ^3/uL (0-0.8); Eosinophils % (auto) 6.9 % (0.0-7.0); Hematocrit 41.9 % (41.0-53.0); Hemoglobin 14.1 g/dL (13.5-17.5); Lymphocytes # (auto) 1.6 10 ^3/uL (0.4-5.4); Lymphocytes % (auto) 30.9 % (10.0-50.0); Mean Corpuscular Hemoglobin 30.9 pg (28.0-32.0); Mean Corpuscular Hgb Conc. 33.6 g/dL (32.0-36.0); Mean Corpuscular Volume 92.2 fL (80.0-100.0); Monocytes # (auto) 0.4 10 ^3/uL (0-1.3); Monocytes % (auto) 6.9 % (0.0-12.0); Neutrophils # (auto) 2.9 10 ^3/uL (1.6-8.6); Neutrophils % (auto) 54.1 % (37.0-80.0); Nucleated Red Blood Cells % 0.1 %; Red Blood Cells 4.54 10^6/uL (4.5-5.90); Red Cell Distribution Width 15.4 % (11.8-14.3); White Blood Cell 5.3 10^3/uL (4.4-10.8)
[2024-02-19 18:59] LABS: INR 1.18 (0.9-1.15); Partial Thromboplastin Time 25.5 SEC (24.5-34.5); Prothrombin Time 12.4 sec (9.3-11.8)
[2024-02-19] MEDS: levETIRAcetam 1000 mg/100ml 100 ML IV ONE (19:05)
[2024-02-19 19:10] LABS: Alanine Aminotransferase 16 U/L (7-40); Alkaline Phosphatase 76 U/L (46-116); Anion Gap 7 (5-15); Aspartate Aminotransferase 13 U/L (13-40); BUN/Creatinine Ratio 27.4 (10.0-20.0); Bilirubin, Total 0.7 mg/dL (0.2-1.0); Blood Urea Nitrogen 23 mg/dL (9-23); Calcium 9.5 mg/dL (8.7-10.4); Carbon Dioxide 28 mmol/L (20-30); Chloride 106 mmol/L (98-107); Glucose 100 mg/dL (74-106); Potassium 4.1 mmol/L (3.5-5.1); Sodium 141 mmol/L (136-145); Total Protein 6.4 g/dL (5.7-8.2)
[2024-02-19 19:35] VITALS: PULSE 60
[2024-02-19] MEDS ORDERED: DOCUSATE SOD 100 MG CAP PO PRN (20:45)
[2024-02-19] MEDS ORDERED: hydrALAZINE HCL 20 MG/ML VL IV PRN (20:45)
[2024-02-19] MEDS ORDERED: ONDANSETRON HCL 4 MG/2 ML VIAL IV PRN (20:45)
[2024-02-19] MEDS ORDERED: HYDROcodone-ACET 5/325MG TAB PO PRN (20:45)
[2024-02-19] MEDS ORDERED: ACETAMINOPHEN 325 MG TAB PO PRN (20:45)
[2024-02-19] MEDS ORDERED: MORPHINE SULFATE INJ 2 MG/ml SYRG IV PRN (21:15)
[2024-02-19] MEDS ORDERED: NITROGLYCERIN 0.4 MG SL TAB SL PRN (21:15)
[2024-02-19] MEDS: ATORVASTATIN 20 MG TAB PO SCH (21:59)
[2024-02-19] MEDS: levETIRAcetam 500 mg/100ml 100 ML IV SCH (22:00)
[2024-02-19] MEDS: SODIUM CHLOR 0.9% PF (SALINE LOCK) 10ML VIAL/SYR IV SCH (22:09)
[2024-02-20] VITALS (9 sets, daily range): BP systolic 101–123; BP diastolic 62–81; PULSE 58–61; RESP 16–18; TEMP 97.3–98.7; O2SAT 96–98
[2024-02-20 07:15] LABS: Basophils # (auto) 0 10 ^3/uL (0-0.2); Basophils % (auto) 0.8 % (0.0-2.0); Eosinophils # (auto) 0.3 10 ^3/uL (0-0.8); Eosinophils % (auto) 5.9 % (0.0-7.0); Hematocrit 40.5 % (41.0-53.0); Hemoglobin 13.5 g/dL (13.5-17.5); Lymphocytes # (auto) 2.6 10 ^3/uL (0.4-5.4); Lymphocytes % (auto) 46.8 % (10.0-50.0); Mean Corpuscular Hemoglobin 31.1 pg (28.0-32.0); Mean Corpuscular Hgb Conc. 33.4 g/dL (32.0-36.0); Mean Corpuscular Volume 93.2 fL (80.0-100.0); Monocytes # (auto) 0.4 10 ^3/uL (0-1.3); Monocytes % (auto) 7.8 % (0.0-12.0); Neutrophils # (auto) 2.2 10 ^3/uL (1.6-8.6); Neutrophils % (auto) 38.7 % (37.0-80.0); Nucleated Red Blood Cells % 0.2 %; Red Blood Cells 4.35 10^6/uL (4.5-5.90); Red Cell Distribution Width 15.3 % (11.8-14.3); White Blood Cell 5.6 10^3/uL (4.4-10.8)
[2024-02-20 07:33] LABS: Alanine Aminotransferase 13 U/L (7-40); Alkaline Phosphatase 66 U/L (46-116); Anion Gap 6 (5-15); Aspartate Aminotransferase 10 U/L (13-40); BUN/Creatinine Ratio 17.1 (10.0-20.0); Blood Urea Nitrogen 13 mg/dL (9-23); Calcium 9.4 mg/dL (8.7-10.4); Carbon Dioxide 28 mmol/L (20-30); Chloride 107 mmol/L (98-107); Glucose 69 mg/dL (74-106); Potassium 3.6 mmol/L (3.5-5.1); Sodium 141 mmol/L (136-145)
[2024-02-20 07:34] LABS: Albumin 3.7 g/dL (3.2-4.8); Bilirubin, Total 1.1 mg/dL (0.2-1.0); Total Protein 6.2 g/dL (5.7-8.2)
[2024-02-20] MEDS: ASPirin 81 mg TAB PO SCH (08:54)
[2024-02-20] MEDS: CLOPIDOGREL BISULFATE 75 MG TAB PO SCH (08:54)
[2024-02-20] MEDS: ERGOCALCIFEROL 50,000 UNIT(1.25MG) CAP PO SCH (14:02)
[2024-02-20] MEDS: SACUBITRIL-VALSARTAN 24mg/26mg TAB PO SCH (21:00)
[2024-02-20] MEDS: CARVEDILOL 3.125 MG TAB PO SCH (21:02)
[2024-02-20] MEDS ORDERED: LISINOPRIL 20 MG TAB PO SCH (22:00)
[2024-02-21 02:16] LABS: Urine Bacteria MANY /hpf (None Seen); Urine Blood Negative /uL (Negative); Urine Budding Yeast MODERATE /hpf (None Seen); Urine Clarity Turbid (Clear); Urine Color Colorless (Yellow); Urine Protein, UAD Negative (Negative); Urine Specific Gravity 1.019 (1.001-1.035); Urine Urobilinogen Normal (Negative); Urine WBC 5 /hpf (0 - 3)
[2024-02-21 05:00] VITALS: BP 135/87; PULSE 60; RESP 16; TEMP 98.8; O2SAT 98
[2024-02-21] MEDS: NIFEdipine ER 30 MG TAB PO SCH (06:17)
[2024-02-21] MEDS: EMPAGLIFLOZIN 10 MG TAB PO SCH (06:18)
[2024-02-21 06:23] LABS: Amphetamine Screen, Urine Neg (NEGATIVE); Barbiturate Scree,Urine Neg (NEGATIVE); Benzodiazephine Screen, Urine Neg (NEGATIVE); Cannabinoid Screen, Urine Neg (NEGATIVE); Cocaine Screen, Urine Neg (NEGATIVE); Opiate Scree,Urine Neg (NEGATIVE); Phencyclidine Screen, Urine Neg (NEGATIVE)
[2024-02-21 08:00] VITALS: PULSE 60
[2024-02-21 08:30] LABS: Chloride 108 mmol/L (98-107); Potassium 3.9 mmol/L (3.5-5.1); Sodium 141 mmol/L (136-145)
[2024-02-21 08:31] LABS: Anion Gap 3 (5-15); Calcium 9.7 mg/dL (8.7-10.4); Carbon Dioxide 30 mmol/L (20-30)
[2024-02-21 08:36] LABS: BUN/Creatinine Ratio 17.9 (10.0-20.0); Blood Urea Nitrogen 15 mg/dL (9-23); Glucose 83 mg/dL (74-106)
[2024-02-21 09:00] VITALS: BP 120/79; PULSE 63; RESP 18; TEMP 98.3; O2SAT 96
[2024-02-21] MEDS: ASPirin-EC 81 mg tab PO SCH (11:18)
[2024-02-21] MEDS: CLOPIDOGREL BISULFATE 75 MG TAB PO SCH (11:18)
[2024-02-21 13:00] VITALS: BP 98/50; PULSE 63; RESP 16; TEMP 98.2; O2SAT 98
[2024-02-21 15:18] LABS: Folate (Folic Acid) 26.91 ng/mL (>5.38)
[2024-02-21 15:51] VITALS: BP 98/50; PULSE 63; RESP 16; TEMP 98.2; O2SAT 98
== END 2024-02-21 17:40 | disposition home health service (06) | DRG 56 ==
LOC: EDUNIT# 17:19 → EDBD 17:19 → ER 17:19 → TELE 21:13 → TELE-WESTW 02-20 01:35
PROVIDERS: ADMIT Internal Medicine Geriatric Medicine; ATTEND Internal Medicine Geriatric Medicine
DX: I69.398 Other sequelae of cerebral infarction (principal); I21.A1 Myocardial infarction type 2; R56.9 Unspecified convulsions; E78.5 Hyperlipidemia, unspecified; R40.4 Transient alteration of awareness; E55.9 Vitamin D deficiency, unspecified; I25.10 Atherosclerotic heart disease of native coronary artery without angina pectoris; I11.9 Hypertensive heart disease without heart failure; Z82.49 Family history of ischemic heart disease and other diseases of the circulatory system; Z83.3 Family history of diabetes mellitus
CPT/HCPCS: 36415; 70450; 71045; 80048; 80053; 80307; 81001; 82306; 82533; 82607; 82746; 83735; 83880; 84443; 84484; 85025; 85610; 85730; 93005; 93306; 96365; 97110; 97116; 97163; 97530; G0378

== ENCOUNTER → 2024-06-25 | Outpatient (CLI) | payer MEDICARE, MEDICAID ==
[~2024-06-25] MED LIST changes: +ERGO1CAP12 PO; -ERGO1CAP23 PO; -HYDR25TA87 PO
[2024-06-25 13:50] LABS: Urine Bacteria FEW /hpf (None Seen); Urine Blood TRACE /uL (Negative); Urine Clarity Turbid (Clear); Urine Color Colorless (Yellow); Urine Mucus FEW (None Seen); Urine Protein, UAD Negative (Negative); Urine Specific Gravity 1.016 (1.001-1.035); Urine Squamous Epithelial Cell FEW /hpf (<5); Urine Urobilinogen Normal (Negative); Urine WBC 398 /hpf (0 - 3); Urine WBC Clumps PRESENT /hpf (None Seen); Urine pH 5.5 (5.0-9.0)
[2024-06-25 14:23] LABS: Alanine Aminotransferase 24 U/L (7-40); Alkaline Phosphatase 87 U/L (46-116); Anion Gap 4 (5-15); Aspartate Aminotransferase 15 U/L (13-40); BUN/Creatinine Ratio 20.7 (10.0-20.0); Bilirubin, Total 0.5 mg/dL (0.2-1.0); Blood Urea Nitrogen 18 mg/dL (9-23); Calcium 9.9 mg/dL (8.7-10.4); Chloride 107 mmol/L (98-107); Glucose 81 mg/dL (74-106); Potassium 3.9 mmol/L (3.5-5.1); Total Protein 7.3 g/dL (5.7-8.2)
[2024-06-25 14:27] LABS: Carbon Dioxide 34 mmol/L (20-31); Sodium 145 mmol/L (136-145)
== END | disposition home or self-care (01) ==
LOC: LAB 13:24
PROVIDERS: ATTEND Internal Medicine
DX: E11.22 Type 2 diabetes mellitus with diabetic chronic kidney disease (principal); N18.9 Chronic kidney disease, unspecified; Z79.899 Other long term (current) drug therapy
CPT/HCPCS: 36415; 80053; 81001; 82607; 83036; 87086; 87088; 87186